=== PATIENT | female | born 2000 | race African-American/Black ===

== ENCOUNTER 2022-05-09 03:46 | Inpatient (IN) ==
[2022-05-09 04:23] LABS: Squamous Epithelial Cell,Urine Occasional /HPF (0-10); Urine Appearance Clear (Clear); Urine Color Yellow (Yellow); Urine pH 5.5 (4.5-8.0)
[2022-05-09 04:24] LABS: Bilirubin,Urine Negative (Negative); Blood, Urine Negative (Negative); Glucose,Urine (UA) Negative (Negative); Ketones,Urine Trace mg/dL (Negative); Nitrite,Urine Negative (Negative); Protein,Urine Negative (Negative); Urine Urobilinogen 0.2 eU/dL (<2.0)
[2022-05-09] MEDS ORDERED: OXYTOCIN/LR 20 UNIT/1,000 ML BAG IV ONE ×2 (04:31→18:35)
[2022-05-09] MEDS ORDERED: BUTORPHANOL 2 MG/ML VIAL IV PRN (04:31)
[2022-05-09] MEDS ORDERED: MEPERIDINE 50 MG/1 ML VIAL IV PRN (04:31)
[2022-05-09] MEDS ORDERED: TRANEXAMIC ACID 1,000 MG in SODIUM CHLORIDE 0.9% 100 ML IV PRN (04:31)
[2022-05-09] MEDS ORDERED: CARBOPROST TROMETHAMINE 250 MCG/ML AMP IM PRN (04:31)
[2022-05-09] MEDS ORDERED: METHYLERGONOVINE 0.2 MG/1 ML AMP IM PRN (04:31)
[2022-05-09] MEDS ORDERED: miSOPROStoL 200 MCG TABLET RECTAL PRN (04:31)
[2022-05-09] MEDS ORDERED: ONDANSETRON 4 MG/2 ML VIAL IV PRN ×2 (04:31→18:35)
[2022-05-09] MEDS ORDERED: diphenhydrAMINE 50 MG/1 ML VIAL IV PRN ×2 (04:33)
[2022-05-09] MEDS ORDERED: PROMETHAZINE 25 MG/1 ML VIAL IM ONE (04:33)
[2022-05-09] MEDS ORDERED: ONDANSETRON 4 MG/2 ML VIAL IV ONE (04:33)
[2022-05-09] MEDS ORDERED: hydrOXYzine HCL 25 MG/1 ML VIAL IM PRN (04:33)
[2022-05-09] MEDS ORDERED: LACTATED RINGERS 250 ML IV PRN (04:33)
[2022-05-09] MEDS ORDERED: NALOXONE 0.4 MG/ML VIAL IV PRN (04:33)
[2022-05-09] MEDS ORDERED: ePHEDrine 50 MG/ML VIAL IV PRN (04:33)
[2022-05-09] MEDS: LACTATED RINGERS 1,000 ML IV SCH ×2 (04:50→09:35)
[2022-05-09] MEDS ORDERED: LACTATED RINGERS 1,000 ML IV SCH (05:00)
[2022-05-09] MEDS ORDERED: OXYTOCIN/LR 20 UNIT/1,000 ML BAG IV SCH (05:00)
[2022-05-09 06:08] LABS: Basophils % 0.2 % (0.0-0.8); Eosinophils % 0.1 % (0.00-10.9); Hematocrit 31.4 VOL% (35.7-47.0); Hemoglobin 10.4 GM/DL (12.0-16.0); Immature Granulocytes % 0.7 %; Immature Granulocytes Absolute 0.07 #; Lymphocytes # 1.2 10*3/uL (1.4-4.0); Lymphocytes % 11.2 % (21.3-54.2); Mean Corpuscular HGB Conc 33.1 GM/DL (32-36); Mean Platelet Volume 11.1 FL (9.6-12.0); Monocytes % 9.2 % (1.7-12.7); Neutrophils % 78.6 % (38.7-73.9); Platelet Count 244 T/CUMM (130-400); Red Blood Count 3.65 MC/CUMM (3.8-5.5); Red Cell Distribution Width 15.8 % (9.3-17.3); White Blood Count 10.5 T/CUMM (4-12)
[2022-05-09] MEDS ORDERED: LACTATED RINGERS 1,000 ML IV ONE (07:29)
[2022-05-09] MEDS ORDERED: CITRIC ACID/SODIUM CITRATE 30 ML UDCUP PO ONE (07:50)
[2022-05-09] MEDS ORDERED: FAMOTIDINE 20 MG/2 ML VIAL IV ONE (07:51)
[2022-05-09] MEDS: fentaNYL 2 MCG/ROPIV 0.2% EPID 100 ML EPIDURAL SCH ×2 (08:43→15:50)
[2022-05-09 10:25] LABS: Bilirubin,Urine Negative (Negative); Blood, Urine Small mg/dL (Negative); Glucose,Urine (UA) Negative (Negative); Ketones,Urine 15 mg/dL (Negative); Nitrite,Urine Negative (Negative); Protein,Urine Negative (Negative); RBC,Urine 1 /HPF (0-4); Urine Appearance Clear (Clear); Urine Color Yellow (Yellow); Urine Urobilinogen 0.2 eU/dL (<2.0)
[2022-05-09] MEDS ORDERED: SODIUM CHLORIDE 0.9% 0 ML IV ONE (16:36)
[2022-05-09] MEDS ORDERED: OXYTOCIN/LR 30 UNIT/1,000 ML BAG IV ONE (16:38)
[2022-05-09] MEDS ORDERED: ACETAMINOPHEN 325 MG TABLET PO PRN (18:35)
[2022-05-09] MEDS ORDERED: HYDROCORTISONE 2.5% RECTAL CREAM 30 GM TUBE TOP PRN (18:35)
[2022-05-09] MEDS ORDERED: LANOLIN 50% CREAM 0.3 OZ TUBE TOP PRN (18:35)
[2022-05-09] MEDS ORDERED: oxyCODONE/ACETAMINOPHEN 5-325 MG TABLET PO PRN ×2 (18:35)
[2022-05-09] MEDS ORDERED: MEASLES/MUMPS/RUBELLA VACCINE 0.5 ML VIAL SUBCUT ONE (18:35)
[2022-05-09] MEDS ORDERED: BENZOCAINE 20%/MENTHOL 0.5% SPRAY 56 GM CAN TOP PRN (18:35)
[2022-05-09] MEDS ORDERED: BISACODYL 10 MG SUPP RECTAL PRN (18:35)
[2022-05-09] MEDS ORDERED: WITCH HAZEL PADS 100/JAR TOP PRN (18:35)
[2022-05-09] MEDS ORDERED: RHO(D) IMMUNE GLOBULIN 300 MCG SYRINGE IM ONE (18:35)
[2022-05-09] MEDS ORDERED: DIPH/TET/ACEL PERT BOOSTER VACCINE 0.5 ML VIAL IM ONE (18:35)
[2022-05-09 18:38] LABS: Cord Arterial Blood HCO3 19.4 MMOL/L
[2022-05-09 18:41] LABS: Cord Venous Blood HCO3 20.8 MMOL/L; Cord Venous Blood PCO2 41.3 MMHG; Cord Venous Blood PO2 31.4
[2022-05-09] MEDS: IBUPROFEN 800 MG TABLET PO PRN (19:32)
[2022-05-09] MEDS: DOCUSATE SODIUM 100 MG CAPSULE PO SCH (22:37)
[2022-05-09 22:41] LABS: Basophils % 0.2 % (0.0-0.8); Hematocrit 29.6 VOL% (35.7-47.0); Hemoglobin 9.9 GM/DL (12.0-16.0); Immature Granulocytes Absolute 0.16 #; Lymphocytes # 0.7 10*3/uL (1.4-4.0); Lymphocytes % 4.6 % (21.3-54.2); Mean Corpuscular HGB Conc 33.4 GM/DL (32-36); Mean Platelet Volume 10.5 FL (9.6-12.0); Monocytes % 6.6 % (1.7-12.7); Neutrophils % 87.6 % (38.7-73.9); Platelet Count 206 T/CUMM (130-400); Red Blood Count 3.44 MC/CUMM (3.8-5.5); Red Cell Distribution Width 16.1 % (9.3-17.3); White Blood Count 15.6 T/CUMM (4-12)
[2022-05-09 23:16] LABS: Band Neutrophils 5 % (0-10); Lymphocytes 10 % (20-55); Platelet Estimate Normal; Total Cells Counted 100
[2022-05-10] MEDS ORDERED: ACETAMINOPHEN/CODEINE 300-30 MG TABLET PO PRN (00:01)
[2022-05-10] MEDS: ACETAMINOPHEN/CODEINE 300-30 MG TABLET PO PRN ×3 (01:07→18:08)
[2022-05-10 06:04] LABS: Basophils % 0.2 % (0.0-0.8); Eosinophils % 0.2 % (0.00-10.9); Hematocrit 28.3 VOL% (35.7-47.0); Hemoglobin 9.4 GM/DL (12.0-16.0); Immature Granulocytes % 1.2 %; Immature Granulocytes Absolute 0.17 #; Lymphocytes # 1.3 10*3/uL (1.4-4.0); Lymphocytes % 8.9 % (21.3-54.2); Mean Corpuscular HGB Conc 33.2 GM/DL (32-36); Mean Corpuscular Volume 85.8 FL (87-102); Mean Platelet Volume 11.1 FL (9.6-12.0); Monocytes # 1.2 10*3/uL (0.11-0.8); Monocytes % 8.2 % (1.7-12.7); Neutrophils % 81.3 % (38.7-73.9); Platelet Count 229 T/CUMM (130-400); Red Cell Distribution Width 16.2 % (9.3-17.3); White Blood Count 14.2 T/CUMM (4-12)
[2022-05-10 08:35] LABS: Band Neutrophils 1 % (0-10); Eosinophils 1 % (0-10); Lymphocytes 12 % (20-55); Platelet Estimate Normal; Polychromasia Slight; Target Cells Slight; Total Cells Counted 100
[2022-05-10] MEDS: DOCUSATE SODIUM 100 MG CAPSULE PO SCH ×3 (09:31→20:13)
[2022-05-10] MEDS: IBUPROFEN 800 MG TABLET PO PRN (19:18)
[2022-05-11] MEDS: IBUPROFEN 800 MG TABLET PO PRN (02:07)
[2022-05-11] MEDS: DOCUSATE SODIUM 100 MG CAPSULE PO SCH (07:35)
[2022-05-11 07:49] VITALS: BP 127/67
== END 2022-05-11 13:00 | disposition home or self-care (01) | DRG 807 ==
LOC: N.OBOUT 03:46 → N.LD 03:49 → N.OB 22:00
PROVIDERS: ADMIT Obstetrics & Gynecology; ATTEND Obstetrics & Gynecology